=== PATIENT | female | born 1975 | race Caucasian/White ===

== ENCOUNTER → 2017-01-04 | Outpatient (CLI) | payer OTHER ==
--- NOTE | 2017-01-04 12:57 | REP ---
MAXILLOFACIAL CT WITHOUT CONTRAST: HISTORY: Chronic sinusitis. COMPARISON: 01/21/2008. 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 The patient is status post left uncinectomy. The sinuses are clear. The right osteomeatal unit is patent. The middle and inferior nasal turbinates are partially paradoxical. There is mild deviation of the nasal septum to the right. A spur is present arising from the right side of the nasal septum. This spur abuts the right inferior nasal turbinate. The cribriform plate, medial guerrero of the orbits and optic canals are intact. The carotid canals form a segment of the posterolateral guerrero of the sphenoid sinus. The sphenoid sinus septum inserts into the left internal carotid canal wall. IMPRESSION: There is no acute or chronic sinusitis. Signed by John Choi MD 01/04/2017 12:59 P
== END ==
LOC: M RAD 12:08
PROVIDERS: ATTEND Internal Medicine Infectious Disease
DX: J32.9 Chronic sinusitis, unspecified (principal)

== ENCOUNTER → 2017-01-13 | Outpatient (REF) | payer OTHER ==
[2017-01-13 19:51] LABS: ALBUMIN 3.9 GM/DL (3.2-5.2); ALBUMIN/GLOBULIN RATIO 1.22 (1.00-1.93); ALKALINE PHOSPHATASE 60 U/L (45-117); ALT/SGPT 21 U/L (12-78); AST/SGOT 19 U/L (15-37); BILIRUBIN,DIRECT 0.1 MG/DL (0.0-0.2); BILIRUBIN,TOTAL 0.3 MG/DL (0.2-1.0); TOTAL PROTEIN 7.1 GM/DL (6.4-8.2)
[2017-01-13 20:22] LABS: BASO % 0.6 % (0.0-1.0); EOS # 0.1 K/mm3 (0.0-0.50); EOS % 2.1 % (0.0-3.0); LARGE UNSTAINED CELL # 0.1 K/mm3 (0.0-0.4); LARGE UNSTAINED CELL % 1.5 % (0.0-4.0); LYMPH # 1.7 K/mm3 (1.5-4.5); LYMPH % 27.1 % (24.0-44.0); MEAN CORPUSCULAR HEMOGLOBIN 31.3 pg (27.0-33.0); MEAN CORPUSCULAR HGB CONC 33.7 g/dl (32.0-36.5); MEAN CORPUSCULAR VOLUME 92.8 fl (80.0-96.0); MONO # 0.3 K/mm3 (0.0-0.8); MONO % 4.8 % (0.0-5.0); NEUTROPHILS # 4.1 K/mm3 (1.8-7.7); NEUTROPHILS % 63.9 % (36.0-66.0); PLATELET COUNT, AUTOMATED 218 k/mm3 (150-450); RED CELL DISTRIBUTION WIDTH 12.3 % (11.5-14.5); WHITE BLOOD COUNT 6.4 K/mm3 (4.0-10.0)
== END ==
LOC: M LABDRWAD 09:12
PROVIDERS: ATTEND Internal Medicine Infectious Disease
DX: B44.9 Aspergillosis, unspecified (principal)

== ENCOUNTER → 2017-12-17 | Outpatient (REF) | payer OTHER | LOC: M LAB REF 12-18 12:21 | DX: R10.9 Unspecified abdominal pain (principal) | CPT/HCPCS: 87086 ==

== ENCOUNTER → 2018-09-17 | Outpatient (REF) | payer OTHER | LOC: M WUC 10:27 | DX: J02.9 Acute pharyngitis, unspecified (principal) | CPT/HCPCS: 87081 ==

== ENCOUNTER → 2018-10-12 | Outpatient (REF) | payer OTHER | LOC: M LAB REF 19:35 | DX: R30.0 Dysuria (principal) ==

== ENCOUNTER → 2018-11-23 | Outpatient (CLI) | payer OTHER ==
[2018-11-23 20:27] LABS: HIV 1&2 SCREEN CENTAUR NEGATIVE (NEGATIVE)
== END ==
LOC: M LABDRWAD 17:02
PROVIDERS: ATTEND Physician Assistant
DX: R30.0 Dysuria (principal)

== ENCOUNTER → 2019-11-11 | Outpatient (CLI) | payer OTHER ==
--- NOTE | 2019-11-11 16:42 | REP ---
Clinical: Thyroid nodule. Comparison: 09/07/2016. Technique: Real time morillo scale and color evaluation using linear high frequency transducer. Findings: The thyroid gland is relatively normal in size, contour, and overall parenchymal echo texture. The right lobe measures 5.3 x 1.8 x 1.2 cm and includes 2.2 mm cyst. The isthmus measures 3.1 mm in width. The left lobe measures 5.2 x 1.5 x 1.3 cm and includes 3.5 mm complex cyst with small solid component. Impression: Findings as described above are essentially unchanged when compared to 2016 examination. Electronically Signed by Brendan Serrano MD 11/11/2019 04:34 P
== END ==
LOC: M RAD 15:28
PROVIDERS: ATTEND Physician Assistant
DX: E04.1 Nontoxic single thyroid nodule (principal)

== ENCOUNTER → 2019-11-24 | Outpatient (CLI) | payer OTHER ==
--- NOTE | 2019-11-24 12:44 | REP ---
Left foot: Four views. History: Pain in the left foot. Findings: There is mild Achilles calcaneal spurring. Overall mineralization pattern is normal. There is no evidence of fracture or periosteal reaction. Joint spaces are preserved. Impression: There is mild Achilles calcaneal spurring. Otherwise negative radiographs of the left foot. Electronically Signed by Mars Atkinson MD 11/24/2019 12:35 P
== END ==
LOC: M ADAMS 12:18
PROVIDERS: ATTEND Physician Assistant
DX: M79.672 Pain in left foot (principal)

== ENCOUNTER → 2020-01-14 | Outpatient (CLI) | payer OTHER ==
--- NOTE | 2020-01-14 13:38 | REPVR ---
PROCEDURE INFORMATION: Exam: CT Maxillofacial Without Contrast, Sinus Exam date and time: 01/14/2020 1:17 PM Age: 44 years old Clinical indication: Pain; Other: Sinus; Additional info: Chronic maxillary sinusitis TECHNIQUE: Imaging protocol: CT Maxillofacial without contrast. Focus on the sinuses. Radiation optimization: All CT scans at this facility use at least one of these dose optimization techniques: automated exposure control; mA and/or kV adjustment per patient size (includes targeted exams where dose is matched to clinical indication); or iterative reconstruction. 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 The left frontal sinus and frontal recess are clear and patent. Ethmoid air cells: Normal. No air-fluid levels. Sphenoid sinuses: The sphenoid sinuses and sphenoid ostia are clear and patent. Maxillary sinuses: Prior endoscopic sinus surgery; left uncinectomy and nasal antral window. The left maxillary sinus surgical drainage pathways widely patent. The left maxillary sinus is clear. The right maxillary sinus and ostiomeatal unit are clear and patent. Orbits: Orbits are normal. Globes are unremarkable. Nasal cavity/Septum: [place] right deviation and spurring of the nasal septum which contacts the right inferior turbinate. No nasal cavity masses. The middle and inferior turbinates are partially paradoxical. Soft tissues: Areas of symmetric high attenuation in the facial soft tissues in keeping with interval augmentation procedures. Bones/joints: No acute fracture. IMPRESSION: No evidence of acute or chronic sinusitis. No significant interval change. Electronically signed by: Cristina Serrano On 01/14/2020 13:38:37 PM
== END ==
LOC: M RAD 13:07
PROVIDERS: ATTEND Otolaryngology
DX: J32.0 Chronic maxillary sinusitis (principal)

== ENCOUNTER → 2020-08-18 | Outpatient (REF) | payer OTHER ==
[2020-08-18 20:19] LABS: BASO # 0.1 10^3/uL (0.0-0.2); BASO % 0.9 % (0.0-1.0); EOS # 0.1 10^3/uL (0.0-0.5); EOS % 1.3 % (0.0-3.0); HEMATOCRIT 44.8 % (36.0-47.0); LYMPH # 2.4 10^3/uL (1.5-5.0); LYMPH % 27.1 % (24.0-44.0); MEAN CORPUSCULAR HGB CONC 33.5 g/dl (32.0-36.5); MEAN CORPUSCULAR VOLUME 95.5 fl (80.0-96.0); MONO # 0.6 10^3/uL (0.0-0.8); MONO % 6.2 % (0.0-5.0); NEUTROPHILS # 5.8 10^3/uL (1.5-8.5); NEUTROPHILS % 64.2 % (36.0-66.0); PLATELET COUNT, AUTOMATED 251 10^3/uL (150-450); RED BLOOD COUNT 4.69 10^6/uL (4.00-5.40)
[2020-08-18 21:01] LABS: ALBUMIN 3.9 GM/DL (3.2-5.2); ALT/SGPT 21 U/L (12-78); BILIRUBIN,TOTAL 0.3 MG/DL (0.2-1.0); BLOOD UREA NITROGEN 20 MG/DL (7-18); CALCIUM LEVEL 9.1 MG/DL (8.5-10.1); CARBON DIOXIDE LEVEL 27 MEQ/L (21-32); CHLORIDE LEVEL 106 MEQ/L (98-107); CREATININE FOR GFR 0.83 MG/DL (0.55-1.30); FREE T4 0.93 NG/DL (0.76-1.46); GLOMERULAR FILTRATION RATE > 60.0 (>58); GLUCOSE, FASTING 83 MG/DL (70-100); POTASSIUM SERUM 4.2 MEQ/L (3.5-5.1); SODIUM LEVEL 138 MEQ/L (136-145); TOTAL PROTEIN 7.1 GM/DL (6.4-8.2)
== END ==
LOC: M SFHCADAM 16:16
PROVIDERS: ATTEND Physician Assistant
DX: K52.9 Noninfective gastroenteritis and colitis, unspecified (principal); R10.32 Left lower quadrant pain

== ENCOUNTER → 2020-08-20 | Outpatient (REF) | payer OTHER | LOC: M SFHCPLAZ 16:11 | PROVIDERS: ATTEND Physician Assistant | DX: K52.9 Noninfective gastroenteritis and colitis, unspecified (principal) ==

== ENCOUNTER → 2020-09-01 | Outpatient (CLI) | payer OTHER ==
--- NOTE | 2020-09-04 12:41 | REP ---
PELVIC ULTRASOUND CLINICAL: Chronic left lower quadrant pain. TECHNIQUE: Transabdominal pelvic ultrasound followed by transvaginal examination for better evaluation of the endometrium and adnexa with color Doppler evaluation of the ovaries. FINDINGS: Bladder is normal and measures 11.1 x 10.6 x 5.7 cm. Normal anteverted uterus measures 8.4 x 4.0 x 5.1 cm. The endometrial complex measures 10.1 mm thickness. No discrete uterine or endometrial abnormalities are identified. The bilateral ovaries are normal in vascularity without torsion. Left ovary measures 2.4 x 1.5 x 2.2 cm (RI 0.55). The right ovary measures 3.1 x 2.5 x 3.0 cm (RI 0.59) and includes a 2.6 x 2.2 x 2.1 cm complex possible hemorrhagic physiologic cyst. No pelvic free fluid or adnexal mass lesion. IMPRESSION: * Normal uterus and left ovary. * Complex cystic structure in the right ovary likely hemorrhagic physiologic cyst. Consider reevaluation in four to six weeks to evaluate for resolution. MTDD
== END ==
LOC: M RAD 12:58
PROVIDERS: ATTEND Physician Assistant
DX: N83.201 Unspecified ovarian cyst, right side (principal); R10.32 Left lower quadrant pain; K52.9 Noninfective gastroenteritis and colitis, unspecified

== ENCOUNTER → 2020-12-15 | Outpatient (CLI) | payer OTHER ==
--- NOTE | 2020-12-16 07:19 | REP ---
INDICATION: CYST OF RT OVARY COMPARISON: 09/18/2020 TECHNIQUE: Transabdominal pelvic ultrasound followed by transvaginal examination for better evaluation of the endometrium and adnexa with color Doppler evaluation of the ovaries. FINDINGS: Bladder is unremarkable and measures 7.2 x 8.8 x 5.3 cm. Normal anteverted uterus measures 8.5 x 5.0 x 4.0 cm. The endometrial complex measures 7.0 mm thickness. No discrete uterine or endometrial abnormalities are appreciated. Bilateral ovaries are normal in appearance and vascularity without evidence for torsion. Right ovary measures 2.4 x 1.6 x 2.3 cm; R I = 0.59. Left ovary measures 4.2 x 2.3 x 2.2 cm and includes 1.8 x 1.7 x 1.3 cm dominant follicle; R I = 0.41. No pelvic fluid. Previous right ovarian cyst resolved. IMPRESSION: 1. Previous right ovarian cyst resolved. 2. New dominant follicle in the left ovary. <Electronically signed by Brendan Serrano > 12/16/20 0715
== END ==
LOC: M RAD 14:37
PROVIDERS: ATTEND Physician Assistant
DX: Z87.42 Personal history of other diseases of the female genital tract (principal)

== ENCOUNTER → 2021-01-26 | Outpatient (REF) | payer OTHER | LOC: M LAB REF 16:07 | PROVIDERS: ATTEND Nurse Practitioner Family | DX: J02.9 Acute pharyngitis, unspecified (principal) ==

== ENCOUNTER → 2021-02-15 | Outpatient (CLI) | payer OTHER ==
--- NOTE | 2021-02-15 17:11 | REPMRS ---
Patient History The patient states she has not had a clinical breast exam in over a year. Family history of pancreatic cancer at age 50 or over in paternal grandfather. Digital Woman Screen Mammo: February 15, 2021 - Exam #: [id number] Bilateral CC and MLO view(s) were taken. Technologist: Erin Nixon, Technologist Prior study comparison: December 31, 2019, bilateral digital mammo screening bilat, performed at [facility]. February 07, 2018, left breast digital mammo diagnostic unilateral, performed at [facility]. September 15, 2017, bilateral digital mammo screening bilat, performed at [facility]. FINDINGS: The breast tissue is heterogeneously dense. This may lower the sensitivity of mammography. The Volpara volumetric breast density category is: C. There is a moderate amount of heterogeneously dense fibroglandular tissue which is fairly symmetric. There is no interval development of dominant mass, architectural distortion, or grouped microcalcification typical of malignancy. There has been no change in the appearance of the mammogram from the prior studies. 3-D tomosynthesis shows no additional findings. Assessment: BI-RADS/ACR category 1 mammogram. Negative Mammogram. Recommendation Routine screening mammogram of both breasts in 1 year (for women over age 40). This patient's [facility] Lifetime Breast Cancer RIsk is estimated at 10.8 %. This mammogram was interpreted with the aid of an FDA-approved computer-aided dectection system. Electronically Signed By: Rui Atkinson MD 02/15/21 [id number]
== END ==
LOC: M WHC 13:37
PROVIDERS: ATTEND Physician Assistant
DX: Z12.31 Encounter for screening mammogram for malignant neoplasm of breast (principal)

== ENCOUNTER → 2021-07-20 | Outpatient (REF) | payer OTHER ==
[2021-07-20 18:31] LABS: BASO # 0.1 10^3/uL (0.0-0.2); EOS # 0.2 10^3/uL (0.0-0.5); EOS % 2.1 % (0.0-3.0); HEMATOCRIT 44.8 % (36.0-47.0); HEMOGLOBIN 14.9 g/dl (12.0-15.5); LYMPH # 2.4 10^3/uL (1.5-5.0); LYMPH % 28.7 % (24.0-44.0); MEAN CORPUSCULAR HEMOGLOBIN 31.6 pg (27.0-33.0); MEAN CORPUSCULAR HGB CONC 33.3 g/dl (32.0-36.5); MEAN CORPUSCULAR VOLUME 95.1 fl (80.0-96.0); MONO # 0.6 10^3/uL (0.0-0.8); MONO % 7.3 % (2.0-8.0); NEUTROPHILS % 60.4 % (36.0-66.0); PLATELET COUNT, AUTOMATED 277 10^3/uL (150-450); RED BLOOD COUNT 4.71 10^6/uL (4.00-5.40); WHITE BLOOD COUNT 8.3 10^3/uL (4.0-10.0)
[2021-07-20 19:03] LABS: ERYTHROCYTE SEDIMENTATION RATE 4 mm/hr (0-20)
[2021-07-20 19:04] LABS: ALBUMIN 3.9 GM/DL (3.2-5.2); ALT/SGPT 21 U/L (12-78); BILIRUBIN,TOTAL 0.3 MG/DL (0.2-1.0); BLOOD UREA NITROGEN 18 MG/DL (7-18); CARBON DIOXIDE LEVEL 31 MEQ/L (21-32); CHLORIDE LEVEL 107 MEQ/L (98-107); CREATININE FOR GFR 0.72 MG/DL (0.55-1.30); GLOMERULAR FILTRATION RATE > 60.0 (>58); GLUCOSE, FASTING 88 MG/DL (70-100); RHEUMATOID FACTOR QUANT < 10.0 IU/ML (<15.0); SODIUM LEVEL 140 MEQ/L (136-145); TOTAL PROTEIN 7.1 GM/DL (6.4-8.2)
== END ==
LOC: M SFHCADAM 14:31
PROVIDERS: ATTEND Physician Assistant
DX: R21 Rash and other nonspecific skin eruption (principal); M25.541 Pain in joints of right hand; M25.542 Pain in joints of left hand

== ENCOUNTER → 2022-07-12 | Outpatient (CLI) | payer OTHER | LOC: M WHC 14:57 | PROVIDERS: ATTEND Physician Assistant | DX: Z12.31 Encounter for screening mammogram for malignant neoplasm of breast (principal) ==

== ENCOUNTER → 2022-08-02 | Outpatient (CLI) | payer OTHER | LOC: M SOG 10:43 | PROVIDERS: ATTEND Physician Assistant | DX: M79.641 Pain in right hand (principal); M79.642 Pain in left hand ==

== ENCOUNTER → 2023-01-23 | Outpatient (REF) | payer OTHER | LOC: M PLALAB 17:23 | PROVIDERS: ATTEND Nurse Practitioner Family | DX: Z12.4 Encounter for screening for malignant neoplasm of cervix (principal) ==

== ENCOUNTER → 2023-02-13 | Outpatient (REF) | payer OTHER | LOC: M SFHCDERM 17:35 | PROVIDERS: ATTEND Physician Assistant | DX: L40.8 Other psoriasis (principal) ==

== ENCOUNTER → 2023-08-28 | Outpatient (CLI) | payer OTHER | LOC: M WHC 15:15 | PROVIDERS: ATTEND Nurse Practitioner Family | DX: Z12.31 Encounter for screening mammogram for malignant neoplasm of breast (principal) ==

== ENCOUNTER → 2024-01-29 | Outpatient (REF) | payer OTHER | LOC: M LAB REF 13:30 | PROVIDERS: ATTEND Nurse Practitioner Family | DX: Z12.4 Encounter for screening for malignant neoplasm of cervix (principal) ==

== ENCOUNTER → 2024-01-29 | Outpatient (REF) | payer OTHER ==
[2024-01-29 14:20] LABS: BASO # 0.1 10^3/uL (0.0-0.2); BASO % 0.9 % (0.0-1.0); EOS # 0.3 10^3/uL (0.0-0.5); EOS % 3.3 % (0.0-3.0); LYMPH # 2.2 10^3/uL (1.5-5.0); LYMPH % 27.7 % (24.0-44.0); MEAN CORPUSCULAR HEMOGLOBIN 32.5 pg (27.0-33.0); MEAN CORPUSCULAR HGB CONC 33.3 g/dl (32.0-36.5); MEAN CORPUSCULAR VOLUME 97.4 fl (80.0-96.0); MONO # 0.7 10^3/uL (0.0-0.8); MONO % 9.1 % (2.0-8.0); NEUTROPHILS # 4.6 10^3/uL (1.5-8.5); NEUTROPHILS % 58.6 % (36.0-66.0); PLATELET COUNT, AUTOMATED 240 10^3/uL (150-450); RED BLOOD COUNT 4.62 10^6/uL (4.00-5.40); WHITE BLOOD COUNT 7.8 10^3/uL (4.0-10.0)
[2024-01-29 14:39] LABS: ALBUMIN 3.8 G/DL (3.2-5.2); ALKALINE PHOSPHATASE 53 U/L (46-116); ALT/SGPT 12 U/L (7.0-40); AST/SGOT 12 U/L (<34); BILIRUBIN,TOTAL 0.4 MG/DL (0.3-1.2); BLOOD UREA NITROGEN 21 MG/DL (9-23); CARBON DIOXIDE LEVEL 32 MMOL/L (20-31); CHLORIDE LEVEL 106 MMOL/L (98-107); CHOLESTEROL LEVEL 217 MG/DL (<200); CHOLESTEROL RISK RATIO 3.59 (<5); CREATININE FOR GFR 0.75 MG/DL (0.55-1.30); GLOMERULAR FILTRATION RATE > 60.0 (>58); GLUCOSE, FASTING 80 MG/DL (60-100); HDL CHOLESTEROL 60.3 MG/DL (>40); LDL CHOLESTEROL 138.7 MG/DL (<100); NON-HDL-C 156.7 MG/DL; POTASSIUM SERUM 3.9 MMOL/L (3.5-5.1); SODIUM LEVEL 139 MMOL/L (136-145); TOTAL PROTEIN 6.6 G/DL (5.7-8.2); TRIGLYCERIDES LEVEL 90 MG/DL (<150)
[2024-01-29 14:41] LABS: FREE T4 1.07 NG/DL (0.89-1.76)
== END ==
LOC: M SFHCADAM 10:20
PROVIDERS: ATTEND Physician Assistant
DX: F17.210 Nicotine dependence, cigarettes, uncomplicated (principal); Z13.220 Encounter for screening for lipoid disorders; Z12.11 Encounter for screening for malignant neoplasm of colon; R14.0 Abdominal distension (gaseous); L40.9 Psoriasis, unspecified